=== PATIENT | male | born 1970 | race Caucasian/White ===

== ENCOUNTER 2025-01-05 19:17 | Emergency (ER) | payer BC, SELFPAY ==
[2025-01-05 19:17] VITALS: BP 122/94; PULSE 98; RESP 17; TEMP 36.6; O2SAT 98; BMI 22.7
[2025-01-05 22:19] VITALS: BP 114/80; PULSE 87; RESP 18; O2SAT 98
[2025-01-05] MEDS: Pantoprazole Sodium 40 MG in 0.9% Normal Saline (100mL MB+) 100 ML 330 MG IV (22:26)
[2025-01-05] MEDS: Sucralfate 1 GM Tablet PO (22:26)
[2025-01-05] MEDS: 0.9% Normal Saline (1000mL) 1,000 ML 999 ML IV (22:27)
[2025-01-05 22:30] LABS: Absolute Lymphocyte Count 3.98 X10^3/uL (0.83-4.51); Absolute Neutrophil Count 7.4 X10^3/uL (2.0-7.7); Basophil# 0.04 X10^3/uL; Basophil% 0.3 % (0-1); Eosinophil# 0.29 X10^3/uL; Eosinophils% 2.3 % (0-5); Hematocrit 46.4 % (40-54); Hemoglobin 15.9 g/dL (13.0-16.5); Lymphocyte # 3.98 X10^3/ul (0.83-4.51); Mean Corp Hgb Conc 34.3 g/dL (32-36); Mean Corpuscular Hgb 29.6 pg (27.0-32.0); Mean Corpuscular Volume 86.2 fL (80-94); Mean Platelet Vol. 11.3 fl (6.2-12.0); Monocyte# 1.08 X10^3/uL; Monocyte% 8.4 % (0-10); NRBC Flagged by Analyzer 0 % (0-5); Neutrophil # 7.39 X10^3/uL (2.7-7.7); Neutrophil % 57.7 % (47-70); Platelet Count 296 K/mm3 (150-450); RBC Distribution Width CV 13.1 % (11.6-14.6); RBC Distribution Width SD 40.8 fl (35.1-43.9); Red Blood Count 5.38 M/mm3 (4.6-6.2); White Blood Count 12.8 K/mm3 (4.4-11.0)
[2025-01-05 23:08] LABS: AST(SGOT) 22 U/L (<=37); Alanine Aminotransfer ALT/SGPT 17 U/L (<=46); Albumin, Serum 4.2 g/dL (3.5-5.0); Alkaline Phosphatase 137 U/L (40-129); Anion Gap 10 (5-15); BUN 28 mg/dL (4-19); BUN/Creat Ratio 23.6 RATIO (10-20); Bilirubin, Direct 0.18 mg/dL (0.00-0.30); Calcium,Total 9.7 mg/dL (7.6-11.0); Carbon Dioxide 27.5 mmol/L (21.0-32.0); Chloride 102 mmol/L (98-108); EST Glomerular Filtration Rate 71 (>60); Globulin 2.7 g/dL (2.2-4.2); Glucose 105 mg/dL (70-99); Lipase 22 U/L (13-75); Magnesium 1.9 mg/dL (1.5-2.2); Potassium 4.2 mmol/L (3.3-5.1); Protein, Total 6.9 g/dL (5.9-8.4); Sodium Level 139 mmol/L (133-145); Total Bilirubin 0.42 mg/dL (0.00-1.30)
--- NOTE | 2025-01-05 23:40 | EDS_ITS ---
HPI History of Present Illness Chief Complaint: Abd Pain Informant: patient Narrative Narrative: Patient is a 54-year-old male with past medical history of previous stroke and hypertension. He states he has had a lump on his abdomen for quite a long time. He states it does not seem to cause him any pain and it is not growing in size however no one has ever evaluated in this concerns him and therefore he comes in for evaluation. He also reports that he has noted that he has had pain in the upper mid abdomen with eating and almost feels like food gets stuck for a second. He states it is painful for just a short time and then resolves. He denies any previous EGD. He states he is unsure if the lump and his symptoms are related. [facility] Medical History (Updated 01/06/25 @ 03:[address] Scott Perales, DO) Hypertension Stroke Home Medications ?Medication ?Instructions ?Recorded ?Last Taken ?Type olmesartan 40 mg-amlodipine 10 1 tab PO DAILY 01/05/25 Unknown History mg-hydrochlorothiazide 12.5 mg tablet pantoprazole 40 mg tablet,delayed 40 mg PO DAILY 30 da ys #30 tabs 01/05/25 Unknown Rx release (Protonix) Allergy/AdvReac Type Severity Reaction Status Date / Time No Known Allergies Allergy Verified 01/05/25 19:18 Social History (Updated 01/05/25 @ 22:22 by Becka Sweet) housing: house Smoking Status: Never smoker ROS ROS ED Constitutional Constitutional ED: Denies chills or fever(s) ENT ENT ED: Denies sore throat Cardiovascular Cardiovascular: Denies chest pain Respiratory/Chest Respiratory/Chest: Denies cough or dyspnea Gastrointestinal Gastrointestinal: Reports abdominal pain; Denies diarrhea, nausea or vomiting Genitourinary Genitourinary ED: Denies dysuria Musculoskeletal Musculoskeletal: Denies back pain or myalgias Integumentary Denies rash Neurologic Neurologic: Denies headache(s) Hematologic/Lymphatic Hematologic/Lymphatic: Denies easy bleeding or easy bruising Allergic/Immunologic Allergic/Immunologic ED: Denies mouth swelling or tongue swelling EXAM Physical Exam Const Vital Signs: 01/05/25 19:17 01/05/25 22:19 01/05/25 23:46 Temperature 98 F 98 F Temperature Source Oral Pulse Rate 98 87 88 Respiratory Rate 17 18 18 Blood Pressure 122/94 H 114/80 112/86 H Blood Pressure Mean 103 91 94 Pulse Ox 98 98 99 Oxygen Delivery Method Room Air Positive well nourished and well developed General Appearance ED: well developed; Negative for pallor HEENT HEENT Narrative: Normocephalic atraumatic No tongue or lip swelling no oral lesions no airway edema or compromise No secondary findings in the posterior pharynx to suggest infection Eyes PERRL and EOMs intact bilaterally General Eye ED: Negative for scleral icterus Neck supple Neck Narrative: No nuchal rigidity or meningeal signs noted Chest Wall Chest Narrative: Along the right anterior lower rib cage there is a 2 x 2 cm flesh toned area that is soft and movable that is consistent with lipoma. No induration or fluctuance. No erythema or warmth. No pain on palpation. Resp normal respiratory effort and clear to auscultation bilaterally Cardio regular rate and regular rhythm GI normal to inspection, nondistended, normoactive bowel sounds, non-tender, non- distended and no masses GI Narrative: Abdomen is soft nontender nondistended with normal active bowel sounds No voluntary guarding or rigidity or pulsatile mass No hernia noted Negative Booker sign Auscultation: normoactive bowel sounds Palpation: soft Extremity normal to inspection Neuro oriented x3 and CN's II-XII intact bilaterally Sensorium / Orientation: alert Psych mental status grossly normal Skin no rashes or lesions noted Skin Narrative: Mass to the right chest wall consistent with lipoma as documented above General Skin Exam: Negative for jaundice or pallor MDM MDM MDM Narrative Medical decision making narrative: Patient arrived to the ER with stable vitals. He reported a longstanding mass and differential for this is sebaceous cyst versus cellulitis versus abscess versus lipoma. Based on the physical exam this is most likely a lipoma and there is no need for further workup of it. With his intermittent midepigastric pain there is concern for biliary colic versus acute pancreatitis versus acute cholecystitis versus esophageal stricture. Basic labs were obtained and shows mild leukocytosis but this is most likely stress response as he does not have physical exam findings concerning for infection. Otherwise his lipase is normal going against pancreatitis and liver enzymes are not clinically elevated going against a biliary issue. On reevaluation he reports resolution of symptoms after given IV fluids and Protonix as well as Carafate. Therefore at this time he will be discharged home and can follow-up with dermatology to discuss lipoma removal as well as GI to discuss need for EGD to further assess the recurrent nature of his symptoms. However at this time as he does not have signs of secondary infection pancreatitis or acute cholecystitis he is otherwise safe for discharge History & Record Review Discussion w/independent historian: Patient Lab Data Attestation: I reviewed the patient's lab results. Labs: Laboratory Results - last 24 hr 01/05/25 22:09 WBC 12.8 H RBC 5.38 Hgb 15.9 Hct 46.4 MCV 86.2 MCH 29.6 MCHC 34.3 RDW Std Deviation 40.8 RDW Coeff of Adrián 13.1 Plt Count 296 MPV 11.3 Immature Gran % (Auto) 0.300 Neut % (Auto) 57.7 Lymph % (Auto) 31.0 [place] % (Auto) 8.4 Eos % (Auto) 2.3 Baso % (Auto) 0.3 Absolute Neuts (auto) 7.4 Absolute Lymphs (auto) 3.98 Nucleated RBC % 0 Sodium 139 Potassium 4.2 Chloride 102 Carbon Dioxide 27.5 Anion Gap 10 BUN 28 H Creatinine 1.20 Estim Creat Clear Calc 68.00 Est GFR (MDRD) Non-Af 71 BUN/Creatinine Ratio 23.6 H Glucose 105 H Calcium 9.7 Magnesium 1.9 Total Bilirubin 0.42 Direct Bilirubin 0.18 AST 22 ALT 17 Alkaline Phosphatase 137 H Total Protein 6.9 Albumin 4.2 Globulin 2.7 Lipase 22 Discharge Plan Triage Chief Complaint: Abd Pain ED Provider: Scott Perales Dx/Rx/DC Orders Clinical Impression: Lipoma, Nonspecific abdominal pain, Hypertension, History of cardioembolic cerebrovascular accident (CVA) Instructions: Abdominal Pain, ED Lipoma Prescriptions: New pantoprazole [Protonix] 40 mg tablet,delayed release (DR/EC) 40 mg PO DAILY 30 Days Qty: 30 0RF No Action [id number] 40-10-12.5 mg tablet 1 tab PO DAILY Primary Care Provider: BRIJESH LEON Referrals: Yadiel Chowdhury DO [Med Staff - Active Staff] - (Abdominal pain potential need for EGD) [facility] Doctor,Out of [Non-Staff] - Activity Restrictions/Additional Instructions: Follow-up with general surgery or a skinning machine feeder to discuss potential removal of your lipoma. Please follow-up with gastroenterology/Dr. Chowdhury for repeat evaluation of your recurrent abdominal pain and potential need for an EGD. Return to the ER should you have any further concerns or worsening of symptoms Print Language: German Disposition Disposition: Home, Self Care Discharge Date/Time: 01/05/25 23:48
[2025-01-05 23:46] VITALS: BP 112/86; PULSE 88; RESP 18; TEMP 36.6; O2SAT 99
== END 2025-01-05 23:48 | disposition home or self-care (01) ==
PROVIDERS: Emergency Provider Emergency Medicine; Visit Provider Emergency Medicine
DX: D17.5 Benign lipomatous neoplasm of intra-abdominal organs (principal); R10.9 Unspecified abdominal pain; Z86.73 Personal history of transient ischemic attack (TIA), and cerebral infarction without residual deficits; I10 Essential (primary) hypertension; Z79.899 Other long term (current) drug therapy
CPT/HCPCS: 80048; 80076; 83690; 83735; 85025; 96361; 96365; 99282; A4216